=== PATIENT | female | born 1980 | race Caucasian/White ===

== ENCOUNTER 2016-06-23 11:28 | Emergency (ER) | payer BC ==
[2016-06-23] MEDS ORDERED: MORPHINE 4 MG/ML SYR ONE (11:57)
[2016-06-23] MEDS ORDERED: L.E.T. 3 ML SOLUTION TOPICAL ONE (11:57)
[2016-06-23] MEDS ORDERED: LIDOCAINE/EPI 1% MDV 20 ML ONE (11:58)
== END 2016-06-23 13:55 | disposition home or self-care (01) ==
LOC: ER 11:28
DX: L02.31 Cutaneous abscess of buttock (principal); F17.210 Nicotine dependence, cigarettes, uncomplicated
CPT/HCPCS: 96372